=== PATIENT | female | born 1945 | race Asian ===

== ENCOUNTER → 2016-04-29 | Outpatient (CLI) | payer MEDICAID, OTHER ==
[~2016-04-29] MED LIST: APIX5TAB PO; ATEN100T PO; ATOR40TA28 PO; CA C1TAB73 PO; FLUT16H NASAL; FURO20 PO; LEVO25TA9 PO; LOSA100T29 PO; NIAC1CAP PO; SITA50 PO
== END | disposition home or self-care (01) ==
LOC: RADPV 14:52
PROVIDERS: ATTEND Internal Medicine
DX: I51.7 Cardiomegaly (principal); I70.0 Atherosclerosis of aorta; Z95.0 Presence of cardiac pacemaker
CPT/HCPCS: 71020

== ENCOUNTER 2020-06-16 13:59 | Emergency (ER) | payer MEDICARE, OTHER ==
[~2020-06-16] VITALS: Ht 152.4 cm; Wt 65.9 kg
[~2020-06-16 13:59] MED LIST changes: -ATEN100T PO; +ATEN100T92 PO; -LOSA100T29 PO; +LOSA100T58 PO
[2020-06-16 14:34] LABS: BASOPHILS % (AUTO) 0.7 % (0.0-2.0); EOSINOPHILS % (AUTO) 1.5 % (1.0-6.0); HEMATOCRIT 34.3 % (36-46); HEMOGLOBIN 11.2 g/dL (12.0-16.0); LYMPHOCYTES # (AUTO) 1.9 K/uL (1.0-4.8); LYMPHOCYTES % (AUTO) 20.8 % (22.0-44.0); MEAN CORPUSCULAR HEMOGLOBIN 32.7 pg (26.0-34.0); MEAN CORPUSCULAR HGB CONC 32.7 G/dL (31.0-37.0); MEAN CORPUSCULAR VOLUME 100 fL (80-100); MONOCYTES # (AUTO) 0.6 K/uL (0.1-1.0); MONOCYTES % (AUTO) 6.9 % (2.0-9.0); NEUTROPHILS # (AUTO) 6.3 K/uL (1.8-7.7); NEUTROPHILS % (AUTO) 70.1 % (40.0-70.0); PLATELET COUNT (AUTO) 219 K/uL (150-450); RED BLOOD CELL COUNT(AUTO) 3.42 MIL/uL (4.00-5.20); RED CELL DISTRIBUTION WIDTH 12.8 % (11.5-14.5)
[2020-06-16 14:45] LABS: CALCIUM, TOTAL 8.6 mg/dL (8.8-10.5); CREATININE 1.05 mg/dL (0.60-1.30); POTASSIUM 4.3 mmol/L (3.5-5.1)
[2020-06-16 14:47] LABS: INR 1.1 (0.9-1.1); PROTHROMBIN TIME 11.4 SEC (9.4-11.6)
[2020-06-16 15:14] LABS: ALBUMIN 3.7 g/dL (3.4-5.0); BILIRUBIN,TOTAL 0.6 mg/dL (0.1-1.0); TOTAL PROTEIN, SERUM 7.3 g/dL (6.4-8.2)
[2020-06-16 15:56] LABS: APPEARANCE,URINE CLEAR (CLEAR); BILIRUBIN,URINE NEGATIVE (NEGATIVE); GLUCOSE, URINE (UA) NEGATIVE (NEGATIVE); KETONES,URINE NEGATIVE (NEGATIVE); LEUKOCYTE ESTERASE ,URINE NEGATIVE (NEGATIVE); NITRATE,URINE NEGATIVE (NEGATIVE); OCCULT BLOOD,URINE TRACE (NEGATIVE); PROTEIN,URINE NEGATIVE (NEGATIVE); UROBILINOGEN,URINE 0.2 mg/dL (<=1.0)
[2020-06-16 16:04] LABS: BACTERIA,URINE None Seen /HPF (None Seen); RBC,URINE 0-2 /HPF (0-2); SQUAMOUS EPITHELIAL CELL,UR None Seen /LPF (None Seen); WBC,URINE None Seen /HPF (0-5)
[2020-06-16 19:06] VITALS: BP 130/60
== END 2020-06-16 19:29 | disposition home or self-care (01) ==
LOC: EMS 13:59
DX: R07.9 Chest pain, unspecified (principal); E11.9 Type 2 diabetes mellitus without complications; E78.00 Pure hypercholesterolemia, unspecified; I10 Essential (primary) hypertension; Z86.73 Personal history of transient ischemic attack (TIA), and cerebral infarction without residual deficits; Z79.899 Other long term (current) drug therapy
CPT/HCPCS: 71045; 80053; 81001; 82550; 83880; 84484; 85025; 85610; 85730; 93005; 99285; 36415-L1; 36415-TC

== ENCOUNTER 2023-05-05 14:05 | Inpatient (IN) | payer MEDICARE, OTHER ==
[2023-05-05] VITALS (8 sets, daily range): BP systolic 83–92; BP diastolic 28–59; PULSE 20–60; RESP 18–24; TEMP 83.4–98.4
[~2023-05-05] VITALS: Ht 157.5 cm; Wt 55.3 kg
[~2023-05-05 14:05] MED LIST changes: -FLUT16H NASAL; +FLUT16SP NASAL; -LOSA100T58 PO; +LOSA100T59 PO
[2023-05-05] MEDS ORDERED: PANT40TA54 PO (14:18)
[2023-05-05] MEDS ORDERED: AMLO2.5T29 PO (14:18)
[2023-05-05] MEDS ORDERED: TIOT4MIS3 IH (14:18)
[2023-05-05] MEDS ORDERED: CARV25TA32 PO (14:18)
[2023-05-05] MEDS ORDERED: ROSU40TA70 PO (14:18)
[2023-05-05] MEDS ORDERED: SITA25 PO (14:18)
[2023-05-05] MEDS ORDERED: FERR-89 PO (14:18)
[2023-05-05] MEDS ORDERED: APIX2.5T PO (14:18)
[2023-05-05] MEDS ORDERED: MIRT-92 PO (14:18)
[2023-05-05] MEDS ORDERED: FURO40TA5 PO (14:18)
[2023-05-05] MEDS ORDERED: LEVO50TA11 PO (14:18)
[2023-05-05] MEDS ORDERED: PANT-31 PO (14:29)
[2023-05-05] MEDS ORDERED: AMLO-257 PO (14:29)
[2023-05-05] MEDS ORDERED: ATOR40TA28 PO (14:29)
[2023-05-05 14:35] LABS: BASOPHILS % (AUTO) 0.3 % (0.0-2.0); EOSINOPHILS % (AUTO) 0.2 % (1.0-6.0); LYMPHOCYTES # (AUTO) 0.4 K/uL (1.0-4.8); LYMPHOCYTES % (AUTO) 8.4 % (22.0-44.0); MEAN CORPUSCULAR HEMOGLOBIN 34.7 pg (26.0-34.0); MEAN CORPUSCULAR HGB CONC 32.7 G/dL (31.0-37.0); MEAN CORPUSCULAR VOLUME 106 fL (80-100); MONOCYTES # (AUTO) 0.2 K/uL (0.1-1.0); MONOCYTES % (AUTO) 5.2 % (2.0-9.0); NEUTROPHILS # (AUTO) 3.8 K/uL (1.8-7.7); PLATELET COUNT (AUTO) 29 K/uL (150-450); RED BLOOD CELL COUNT(AUTO) 1.81 MIL/uL (4.00-5.20); RED CELL DISTRIBUTION WIDTH 17.6 % (11.5-14.5); WHITE BLOOD COUNT (AUTO) 4.4 K/uL (4.5-11.0)
[2023-05-05 14:36] LABS: NEUTROPHILS % (AUTO) 85.9 % (40.0-70.0)
[2023-05-05 14:39] LABS: HEMATOCRIT 19.3 % (36-46); HEMOGLOBIN 6.3 g/dL (12.0-16.0)
[2023-05-05 14:40] LABS: CALCIUM, TOTAL 7.3 mg/dL (8.8-10.5); CREATININE 6.57 mg/dL (0.60-1.30); POTASSIUM 3.9 mmol/L (3.5-5.1)
[2023-05-05 14:45] LABS: INR 3.1 (0.9-1.1); PROTHROMBIN TIME 30.4 SEC (9.4-11.6)
[2023-05-05 14:46] LABS: ALBUMIN 2.6 g/dL (3.4-5.0); TOTAL PROTEIN, SERUM 6.3 g/dL (6.4-8.2)
[2023-05-05 14:48] LABS: TROPONIN I-HIGH SENSITIVITY 38 ng/L (<51)
[2023-05-05] MEDS: NOREPINEPHRINE 8 MG/0.9 % NACL 250 ML IV PRN (14:56)
[2023-05-05 15:03] LABS: RBC MORPHOLOGY COMMENT ABNORMAL RBC MORPH
[2023-05-05 15:04] LABS: PATHOLOGY REVIEW, DIFF YES
[2023-05-05] MEDS: PHENYLEPHRINE 200 MG/D5%-WATER 250 ML IV PRN (15:37)
[2023-05-05] MEDS ORDERED: INSULIN LISPRO 100 UNITS/ML SQ PRN (18:15)
[2023-05-05 18:16] LABS: COVID AG,FIA SOURCE NASAL SWAB
[2023-05-05] MEDS ORDERED: BISACODYL 10 MG RECTAL RECTAL SUPPOSITORY PR PRN (18:30)
[2023-05-05] MEDS ORDERED: ACETAMINOPHEN 325 MG TABLET PO PRN (18:30)
[2023-05-05] MEDS ORDERED: ONDANSETRON HCL 4 MG/2 ML VIAL IVP PRN (18:30)
[2023-05-05 18:37] LABS: SARS-COV2 (COVID) ANTIGEN,FIA Negative (Negative)
[2023-05-05] MEDS: AMPICILLIN SODIUM/SULBACTAM NA 3 GM in SODIUM CHLORIDE 0.9% 100 ML IV ONE (19:12)
[2023-05-05 19:57] LABS: ABG CARBOXYHEMOGLOBIN 0.8 % (0.0-1.5); ABG HCO3 15.6 mmol/L (22.0-26.0); ABG METHEMOGLOBIN 1.5 % (0.0-1.5); ABG OXYGEN CONTENT 4.8 mL/dL (15.0-23.0); ABG OXYHEMOGLOBIN 50.7 % (94.0-100.0); ABG PCO2 35 mmHg (35-45); SOURCE, BLOOD GAS ARTERIAL; TEMPERATURE, FAHRENHEIT, BG 82.7 FAHREN (96.0-98.6)
[2023-05-05] MEDS: DOCUSATE SODIUM 100 MG CAPSULE PO SCH (20:05)
[2023-05-05 20:06] LABS: ABG OXYGEN SATURATION 51.9 % (95.0-98.0); ABG TOTAL HEMOGLOBIN 6.6 G/dL (12.0-18.0); PO2, ARTERIAL BG 19.3 mmHg (75.0-83.0)
[2023-05-05 20:07] LABS: ABG A-A DIFF O2 676.9 mmHg (10-20.0); ALLEN TEST, BLOOD GAS Positive; O2 DEVICE,BLOOD GAS NONREBREATHER (ROOM AIR); SITE, BLOOD GAS LFT RADIAL
[2023-05-05 20:10] LABS: LACTIC ACID 1.3 mmol/L (0.4-2.0)
[2023-05-05 20:49] LABS: ABG BASE EXCESS -8.1 mmol/L (-2.0-3.0); ABG CARBOXYHEMOGLOBIN 1.5 % (0.0-1.5); ABG HCO3 18.3 mmol/L (22.0-26.0); ABG METHEMOGLOBIN 1.6 % (0.0-1.5); ABG OXYGEN CONTENT 9.4 mL/dL (15.0-23.0); ABG OXYGEN SATURATION 99.3 % (95.0-98.0); ABG OXYHEMOGLOBIN 96.2 % (94.0-100.0); ABG PCO2 32 mmHg (35-45); ABG PH 7.355 (7.35-7.450); PO2, ARTERIAL BG 104.2 mmHg (75.0-83.0); SOURCE, BLOOD GAS ARTERIAL; TEMPERATURE, FAHRENHEIT, BG 83.1 FAHREN (96.0-98.6)
[2023-05-05 20:53] LABS: ABG A-A DIFF O2 594.8 mmHg (10-20.0); ABG TOTAL HEMOGLOBIN 6.7 G/dL (12.0-18.0); ALLEN TEST, BLOOD GAS Positive; O2 DEVICE,BLOOD GAS NONREBREATHER (ROOM AIR); SITE, BLOOD GAS LFT RADIAL
[2023-05-05] MEDS ORDERED: VANCOMYCIN 1GM/WATER(PEG/NADA) 200 ML IV PRN (21:00)
[2023-05-05] MEDS: VANCOMYCIN 1GM/WATER(PEG/NADA) 200 ML IV ONE (21:07)
[2023-05-05] MEDS: PIPERACILLIN SODIUM/TAZOBACTAM 2.25 GM in DEXTROSE 5%-WATER 50 ML IV SCH (21:07)
[2023-05-05] MEDS: CHLORHEXIDINE GLUCONATE 2% TOWELETTE [2'S/6'S] TP SCH (21:07)
[2023-05-06] VITALS (18 sets, daily range): BP systolic 89–143; BP diastolic 36–62; PULSE 60–90; RESP 18–40; TEMP 87.8–92.4; O2SAT 85–99
[2023-05-06 01:44] LABS: BASOPHILS % (AUTO) 0.1 % (0.0-2.0); EOSINOPHILS % (AUTO) 0 % (1.0-6.0); HEMATOCRIT 21.9 % (36-46); HEMOGLOBIN 7.2 g/dL (12.0-16.0); LYMPHOCYTES # (AUTO) 0.3 K/uL (1.0-4.8); LYMPHOCYTES % (AUTO) 4.9 % (22.0-44.0); MEAN CORPUSCULAR HEMOGLOBIN 32.1 pg (26.0-34.0); MEAN CORPUSCULAR VOLUME 97 fL (80-100); MONOCYTES # (AUTO) 0.3 K/uL (0.1-1.0); MONOCYTES % (AUTO) 4.6 % (2.0-9.0); NEUTROPHILS # (AUTO) 5.1 K/uL (1.8-7.7); PLATELET COUNT (AUTO) 27 K/uL (150-450); RED BLOOD CELL COUNT(AUTO) 2.26 MIL/uL (4.00-5.20); RED CELL DISTRIBUTION WIDTH 21.6 % (11.5-14.5); WHITE BLOOD COUNT (AUTO) 5.6 K/uL (4.5-11.0)
[2023-05-06] MEDS: VASOPRESSIN 40 UNITS in DEXTROSE 5%-WATER 98 ML IV PRN (01:44)
[2023-05-06 01:50] LABS: CALCIUM, TOTAL 6.3 mg/dL (8.8-10.5); CREATININE 6.32 mg/dL (0.60-1.30); POTASSIUM 3.7 mmol/L (3.5-5.1)
[2023-05-06 01:56] LABS: ALBUMIN 2.2 g/dL (3.4-5.0); BILIRUBIN,TOTAL 2.9 mg/dL (0.1-1.0); TOTAL PROTEIN, SERUM 5.3 g/dL (6.4-8.2)
[2023-05-06 02:07] LABS: NEUTROPHILS % (AUTO) 90.4 % (40.0-70.0)
[2023-05-06] MEDS: IPRATROPIUM BROMIDE 0.5 MG/2.5 ML NEB SOLUTION NEB ONE (02:44)
[2023-05-06] MEDS: ALBUTEROL SULFATE 2.5 MG/0.5 ML NEB SOLUTION NEB ONE (02:44)
[2023-05-06 04:00] LABS: ABG BASE EXCESS -12.2 mmol/L (-2.0-3.0); ABG CARBOXYHEMOGLOBIN 0.7 % (0.0-1.5); ABG HCO3 15.4 mmol/L (22.0-26.0); ABG OXYGEN CONTENT 12.5 mL/dL (15.0-23.0); ABG OXYGEN SATURATION 99.7 % (95.0-98.0); ABG PCO2 32 mmHg (35-45); ABG PH 7.276 (7.35-7.450); ABG TOTAL HEMOGLOBIN 8.6 G/dL (12.0-18.0); PO2, ARTERIAL BG 218.1 mmHg (75.0-83.0); SOURCE, BLOOD GAS ARTERIAL; TEMPERATURE, FAHRENHEIT, BG 91.6 FAHREN (96.0-98.6)
[2023-05-06 04:01] LABS: ABG A-A DIFF O2 471.7 mmHg (10-20.0); O2 DEVICE,BLOOD GAS VENT (ROOM AIR); PEEP,BG 5 cm H2O; SITE, BLOOD GAS LFT BRACHIAL; VT, ABG 300 ml
[2023-05-06] MEDS ORDERED: SODIUM CHLORIDE 0.9% 500 ML IV ONE ×3 (04:56→08:01)
[2023-05-06 06:07] LABS: BASOPHILS % (AUTO) 0.1 % (0.0-2.0); EOSINOPHILS % (AUTO) 0 % (1.0-6.0); HEMATOCRIT 22.9 % (36-46); HEMOGLOBIN 7.6 g/dL (12.0-16.0); LYMPHOCYTES # (AUTO) 0.3 K/uL (1.0-4.8); LYMPHOCYTES % (AUTO) 6.5 % (22.0-44.0); MEAN CORPUSCULAR HEMOGLOBIN 32.5 pg (26.0-34.0); MEAN CORPUSCULAR HGB CONC 33.2 G/dL (31.0-37.0); MEAN CORPUSCULAR VOLUME 98 fL (80-100); MONOCYTES # (AUTO) 0.4 K/uL (0.1-1.0); MONOCYTES % (AUTO) 7.1 % (2.0-9.0); NEUTROPHILS # (AUTO) 4.5 K/uL (1.8-7.7); PLATELET COUNT (AUTO) 30 K/uL (150-450); RED BLOOD CELL COUNT(AUTO) 2.33 MIL/uL (4.00-5.20); RED CELL DISTRIBUTION WIDTH 22.7 % (11.5-14.5); WHITE BLOOD COUNT (AUTO) 5.3 K/uL (4.5-11.0)
[2023-05-06 06:32] LABS: NEUTROPHILS % (AUTO) 86.3 % (40.0-70.0)
[2023-05-06 06:36] LABS: CALCIUM, TOTAL 6.3 mg/dL (8.8-10.5); CREATININE 6.38 mg/dL (0.60-1.30); MAGNESIUM 2.6 mg/dL (1.80-2.40); POTASSIUM 3.8 mmol/L (3.5-5.1)
[2023-05-06] MEDS ORDERED: VASOPRESSIN 40 UNITS in DEXTROSE 5%-WATER 98 ML IV PRN (06:45)
[2023-05-06] MEDS ORDERED: DOPamine 400MG/D5W[STANDARD] 250 ML IV PRN (06:45)
[2023-05-06 06:49] LABS: PHOSPHORUS 10.3 mg/dL (2.5-4.9)
[2023-05-06] MEDS: NOREPINEPHRINE 8 MG/0.9 % NACL 250 ML IV PRN (07:22)
[2023-05-06 09:00] LABS: RBC MORPHOLOGY COMMENT ABNORMAL RBC MORPH
[2023-05-06] MEDS: PHENYLEPHRINE 200 MG/D5%-WATER 250 ML IV PRN (09:49)
[2023-05-06] MEDS ORDERED: SODIUM CHLORIDE 0.9% 2,000 ML ONE (10:27)
[2023-05-06] MEDS: DEXTROSE 50%-WATER 25 GM/50 ML SYRINGE IVP PRN (12:08)
[2023-05-06] MEDS: PANTOPRAZOLE SODIUM 40 MG/VIAL IVP SCH (12:08)
[2023-05-06 12:36] LABS: GLUCOMETER DEV NAME(LOC) ICU.S6; GLUCOSE,POINT OF CARE 55 MG/DL (70-110)
[2023-05-06] MEDS: PIPERACILLIN/TAZO 3.375 GM/D5W 50 ML IV SCH (12:49)
[2023-05-06 14:17] LABS: APPEARANCE,URINE TURBID (CLEAR); BILIRUBIN,URINE NEGATIVE (NEGATIVE); COLOR,URINE ORANGE (YELLOW); GLUCOSE, URINE (UA) NEGATIVE (NEGATIVE); KETONES,URINE NEGATIVE (NEGATIVE); LEUKOCYTE ESTERASE ,URINE LARGE (NEGATIVE); NITRATE,URINE NEGATIVE (NEGATIVE); OCCULT BLOOD,URINE LARGE (NEGATIVE); PH,URINE 5.5 (5.0-8.0); PH,URINE DRUG SCREEN 5.5 (5.0-8.0); PROTEIN,URINE 100-200,SEE CONFIRM mg/dL (NEGATIVE); SPECIFIC GRAVITIY, URINE 1.024 (1.003-1.030); UROBILINOGEN,URINE <=1.0 mg/dL (<=1.0)
[2023-05-06 14:23] LABS: AMPHET/METH SCREEN,URINE NEGATIVE (NEGATIVE); BARBITURATE SCREEN, URINE NEGATIVE (NEGATIVE); BENZODIAZEPINES SCREEN,URINE NEGATIVE (NEGATIVE); CANNABINOID SCREEN,URINE NEGATIVE (NEGATIVE); COCAINE SCREEN,URINE NEGATIVE (NEGATIVE); METHADONE SCREEN, URINE NEGATIVE (NEGATIVE); OPIATE SCREEN,URINE NEGATIVE (NEGATIVE); PHENCYCLIDINE SCREEN,URINE NEGATIVE (NEGATIVE)
[2023-05-06 14:28] LABS: ALCOHOL, URINE DRUG SCREEN NEGATIVE (NEGATIVE)
[2023-05-06 14:37] LABS: BACTERIA,URINE Many /HPF (None Seen); RBC,URINE 51-100 /HPF (0-2); SULFOSALICYLIC ACID,URINE 2+ (Negative); WBC,URINE >100 /HPF (0-5)
[2023-05-06 15:31] LABS: GLUCOMETER DEV NAME(LOC) ICU.S6; GLUCOSE,POINT OF CARE 181 MG/DL (70-110)
[2023-05-06 15:59] LABS: ABG BASE EXCESS -15.8 mmol/L (-2.0-3.0); ABG CARBOXYHEMOGLOBIN 1.1 % (0.0-1.5); ABG HCO3 12.8 mmol/L (22.0-26.0); ABG METHEMOGLOBIN 0.1 % (0.0-1.5); ABG OXYGEN CONTENT 9.4 mL/dL (15.0-23.0); ABG OXYGEN SATURATION 93.9 % (95.0-98.0); ABG OXYHEMOGLOBIN 92.8 % (94.0-100.0); ABG PCO2 29 mmHg (35-45); ABG PH 7.234 (7.35-7.450); PO2, ARTERIAL BG 62.9 mmHg (75.0-83.0); SOURCE, BLOOD GAS ARTERIAL; TEMPERATURE, FAHRENHEIT, BG 87.8 FAHREN (96.0-98.6)
[2023-05-06 16:00] LABS: ABG A-A DIFF O2 414.5 mmHg (10-20.0); ABG TOTAL HEMOGLOBIN 7.1 G/dL (12.0-18.0); O2 DEVICE,BLOOD GAS VENTILATOR (ROOM AIR); PEEP,BG 5 cm H2O; SITE, BLOOD GAS ARTERIAL LINE; VT, ABG 300 ml
[2023-05-06 16:16] LABS: CALCIUM, TOTAL 6.3 mg/dL (8.8-10.5); CREATININE 5.23 mg/dL (0.60-1.30); MAGNESIUM 2.1 mg/dL (1.80-2.40); POTASSIUM 4.1 mmol/L (3.5-5.1)
[2023-05-06 16:35] LABS: PHOSPHORUS 8.4 mg/dL (2.5-4.9)
[2023-05-06 18:51] LABS: GLUCOMETER DEV NAME(LOC) ICU.S6; GLUCOSE,POINT OF CARE 63 MG/DL (70-110)
[2023-05-06 18:51] LABS: GLUCOMETER DEV NAME(LOC) ICU.S6; GLUCOSE,POINT OF CARE 86 MG/DL (70-110)
[2023-05-06] MEDS: POTASSIUM CHLORIDE 20 MEQ in NXSTAGE RFP-402 K0/CA3 5,000 ML IRRIG PRN (18:56)
[2023-05-06 21:19] LABS: BASOPHILS % (AUTO) 0.3 % (0.0-2.0); EOSINOPHILS % (AUTO) 0.8 % (1.0-6.0); LYMPHOCYTES # (AUTO) 0.3 K/uL (1.0-4.8); LYMPHOCYTES % (AUTO) 16.7 % (22.0-44.0); MEAN CORPUSCULAR HEMOGLOBIN 31.6 pg (26.0-34.0); MEAN CORPUSCULAR HGB CONC 32.1 G/dL (31.0-37.0); MEAN CORPUSCULAR VOLUME 98 fL (80-100); MONOCYTES # (AUTO) 0.1 K/uL (0.1-1.0); NEUTROPHILS # (AUTO) 1.4 K/uL (1.8-7.7); NEUTROPHILS % (AUTO) 78.2 % (40.0-70.0); PLATELET COUNT (AUTO) 47 K/uL (150-450); RED CELL DISTRIBUTION WIDTH 23.9 % (11.5-14.5); WHITE BLOOD COUNT (AUTO) 1.7 K/uL (4.5-11.0)
[2023-05-06 21:22] LABS: ABG BASE EXCESS -14.7 mmol/L (-2.0-3.0); ABG CARBOXYHEMOGLOBIN 1.1 % (0.0-1.5); ABG HCO3 13.5 mmol/L (22.0-26.0); ABG OXYGEN SATURATION 97.9 % (95.0-98.0); ABG OXYHEMOGLOBIN 96.8 % (94.0-100.0); ABG PCO2 42 mmHg (35-45); PO2, ARTERIAL BG 124.7 mmHg (75.0-83.0); SOURCE, BLOOD GAS ARTERIAL; TEMPERATURE, FAHRENHEIT, BG 96.7 FAHREN (96.0-98.6)
[2023-05-06 21:26] LABS: HEMATOCRIT 19.7 % (36-46); HEMOGLOBIN 6.3 g/dL (12.0-16.0)
[2023-05-06 21:31] LABS: CALCIUM, TOTAL 6.7 mg/dL (8.8-10.5); CREATININE 3.32 mg/dL (0.60-1.30); MAGNESIUM 2.1 mg/dL (1.80-2.40); PHOSPHORUS 6.6 mg/dL (2.5-4.9); POTASSIUM 4.6 mmol/L (3.5-5.1)
[2023-05-06 21:41] LABS: PLATELET MORPHOLOGY COMMENT LARGE PLTS PRESENT; RBC MORPHOLOGY COMMENT ABNORMAL RBC MORPH
[2023-05-06 22:19] LABS: ABG PH 7.151 (7.35-7.450); ABG TOTAL HEMOGLOBIN 7.1 G/dL (12.0-18.0); SITE, BLOOD GAS ARTERIAL LINE
[2023-05-06 22:20] LABS: ABG A-A DIFF O2 477.1 mmHg (10-20.0); O2 DEVICE,BLOOD GAS VENT (ROOM AIR); PEEP,BG 5 cm H2O; VT, ABG 300 ml
[2023-05-06] MEDS ORDERED: SODIUM CHLORIDE 0.9% 250 ML IV ONE (23:33)
[2023-05-07] VITALS (20 sets, daily range): BP systolic 90–117; BP diastolic 42–68; PULSE 47–92; RESP 28; TEMP 86.8–97.2; O2SAT 0–84
[2023-05-07 02:38] LABS: ABG BASE EXCESS -18.6 mmol/L (-2.0-3.0); ABG CARBOXYHEMOGLOBIN 0.6 % (0.0-1.5); ABG METHEMOGLOBIN 0.3 % (0.0-1.5); ABG OXYGEN CONTENT 10.6 mL/dL (15.0-23.0); ABG OXYGEN SATURATION 93.8 % (95.0-98.0); ABG PCO2 29 mmHg (35-45); PO2, ARTERIAL BG 57.8 mmHg (75.0-83.0); SOURCE, BLOOD GAS ARTERIAL; TEMPERATURE, FAHRENHEIT, BG 87.4 FAHREN (96.0-98.6)
[2023-05-07 02:41] LABS: ABG PH 7.166 (7.35-7.450); SITE, BLOOD GAS ARTERIAL LINE
[2023-05-07 02:42] LABS: O2 DEVICE,BLOOD GAS VENT (ROOM AIR); PEEP,BG 5 cm H2O; VT, ABG 300 ml
[2023-05-07] MEDS: DOPamine 400MG/D5W[STANDARD] 250 ML IV PRN (02:46)
[2023-05-07] MEDS: SODIUM BICARBONATE [ADULT] 8.4% 50 MEQ/50 ML SYRINGE IVP ONE (03:06)
[2023-05-07] MEDS: HEPARIN SODIUM,PORCINE 1,000 UNITS/ML VIAL IVCATH PRN ×2 (03:16→03:17)
[2023-05-07 03:40] LABS: GLUCOMETER DEV NAME(LOC) ICU.S6; GLUCOSE,POINT OF CARE 246 MG/DL (70-110)
[2023-05-07 03:40] LABS: GLUCOMETER DEV NAME(LOC) ICU.S6; GLUCOSE,POINT OF CARE 17 MG/DL (70-110)
[2023-05-07 06:07] LABS: HEMOGLOBIN 8.6 g/dL (12.0-16.0); MEAN CORPUSCULAR HEMOGLOBIN 31.4 pg (26.0-34.0); MEAN CORPUSCULAR HGB CONC 33.2 G/dL (31.0-37.0); MEAN CORPUSCULAR VOLUME 95 fL (80-100); PLATELET COUNT (AUTO) 25 K/uL (150-450); RED BLOOD CELL COUNT(AUTO) 2.75 MIL/uL (4.00-5.20); RED CELL DISTRIBUTION WIDTH 19.8 % (11.5-14.5)
[2023-05-07 06:21] LABS: CALCIUM, TOTAL 6.1 mg/dL (8.8-10.5); CREATININE 3.21 mg/dL (0.60-1.30); POTASSIUM 5.2 mmol/L (3.5-5.1); VANCOMYCIN,RANDOM 8.8 mcg/mL (25.0-50.0)
[2023-05-07 06:55] LABS: GLUCOMETER DEV NAME(LOC) ICUN.5; GLUCOSE,POINT OF CARE 295 MG/DL (70-110)
[2023-05-07 06:55] LABS: GLUCOMETER DEV NAME(LOC) ICUN.5; GLUCOSE,POINT OF CARE 74 MG/DL (70-110)
[2023-05-07 08:32] LABS: BAND NEUTROPHILS % (MANUAL) 5 % (0-5); CORRECTED WHITE BLOOD COUNT 1.5 K/uL (4.5-11.0); LYMPHOCYTES % (MANUAL) 28 % (22-44); SEGMENTED NEUTROPHILS % 67 % (40-70); TOTAL CELLS COUNTED 100; WHITE BLOOD COUNT (AUTO) 1.5 K/uL (4.5-11.0)
[2023-05-07 08:33] LABS: RBC MORPHOLOGY COMMENT NORMAL RBC MORPH
[2023-05-07] MEDS ORDERED: VANCOMYCIN 750 MG/WATER(PEG) 150 ML IV ONE (12:00)
== END 2023-05-07 11:52 | DRG 64 ==
LOC: EMS 14:10 → ICUN 18:19 → ICU 05-06 03:45
PROVIDERS: ADMIT Internal Medicine; ATTEND Internal Medicine
PROC: 02HV33Z Insertion of Infusion Device into Superior Vena Cava, Percutaneous Approach (ICD-10-PCS; principal; 2023-05-05)
PROC: 30233K1 Transfusion of Nonautologous Frozen Plasma into Peripheral Vein, Percutaneous Approach (ICD-10-PCS; 2023-05-05)
PROC: 5A1945Z Respiratory Ventilation, 24-96 Consecutive Hours (ICD-10-PCS; 2023-05-06)
PROC: 30233N1 Transfusion of Nonautologous Red Blood Cells into Peripheral Vein, Percutaneous Approach (ICD-10-PCS; 2023-05-06)
DX: I60.9 Nontraumatic subarachnoid hemorrhage, unspecified (principal); E43 Unspecified severe protein-calorie malnutrition; J96.01 Acute respiratory failure with hypoxia; G93.41 Metabolic encephalopathy; N17.0 Acute kidney failure with tubular necrosis; N18.6 End stage renal disease; K92.2 Gastrointestinal hemorrhage, unspecified; I13.2 Hypertensive heart and chronic kidney disease with heart failure and with stage 5 chronic kidney disease, or end stage renal disease; D68.9 Coagulation defect, unspecified; I31.39 Other pericardial effusion (noninflammatory); E87.20 Acidosis, unspecified; D61.818 Other pancytopenia; R18.8 Other ascites; Z99.11 Dependence on respirator [ventilator] status; Z66 Do not resuscitate; Z20.822 Contact with and (suspected) exposure to COVID-19; R57.8 Other shock; E03.9 Hypothyroidism, unspecified; I50.9 Heart failure, unspecified; Z99.2 Dependence on renal dialysis; E11.22 Type 2 diabetes mellitus with diabetic chronic kidney disease; D63.1 Anemia in chronic kidney disease; I49.5 Sick sinus syndrome; I08.1 Rheumatic disorders of both mitral and tricuspid valves; K80.20 Calculus of gallbladder without cholecystitis without obstruction; E78.00 Pure hypercholesterolemia, unspecified; Z95.0 Presence of cardiac pacemaker; X58.XXXA Exposure to other specified factors, initial encounter; Y93.89 Activity, other specified; Y92.89 Other specified places as the place of occurrence of the external cause; Y99.8 Other external cause status; Z68.22 Body mass index [BMI] 22.0-22.9, adult
CPT/HCPCS: 36600; 70496; 70498; 71045; 76700; 80048; 80053; 80202; 80307; 81001; 81002; 82271; 82805; 82948; 82962; 83605; 83735; 84100; 84145; 84443; 84484; 85025; 85610; 85730; 86850; 86900; 86901; 86920; 86923; 86927; 87040; 87081; 87086; 87186; 90947; 93005; 93306; 93970; 94002; 94003; 99285; C9113; J0295; J1265; J1644; J2370; J2543; J3480; J3490; J7030; J7040; J7050; J7060; P9016; P9017; P9035; Q9967; 36415-L1; 36415-TC; 70450; 70450-TC